=== PATIENT | female | born 1970 | race Caucasian/White ===

== ENCOUNTER 2017-12-18 15:14 | Inpatient (IN) | payer MEDICAID, SELFPAY ==
[2017-12-18 15:33] VITALS: BMI 20.4
[2017-12-18] MEDS: Buprenorphine HCl 2 MG TAB.SUBL SL (17:05)
--- NOTE | 2017-12-18 18:03 | PCM.HP.STD ---
Problem List (1) Opioid withdrawal Status: Acute History of Present Illness Date of Admission: 12/18/17 Chief Complaint: Opioid withdrawal The patient is a 47 year old F who was directly admitted into the medical stabilization program at [facility] for opiate withdrawal. Patient has been using IV heroin and snorting heroin for 3 years, the last time she used any was yesterday. Patient denies any use of other drugs but does occasionally drink alcohol. Patient complains of muscle cramping, anxiety, sweating, and stomach discomfort today. Patient has a complicated medical history, she was recently at [facility] from November 24, 2017 through December 04, 2017 for workup concerning a polyp on her left vocal cord and workup of a problem that she has had with dysphagia and hoarseness ?6 months. Patient is a poor informant, I had to call and talk with a medical biller at [facility]-Dr. Awilda Kruse- who informed me that the patient is suspected of having ALS, the polyp lesion on her left vocal cord was benign, patient has had EMGs which showed abnormalities in her bulbar muscles indicative of ALS, she also had modified barium swallows which showed silent aspiration. She told me she was able to take her medications with liquids, Dr. Kruse told me that she is not to have anything orally. Dr. Kruse also told me the patient admitted to taking her 's Dilaudid-patient did not indicate to me during my interview that she was using any other drugs however. She is due to follow-up with neurology and ENT as an outpatient. Patient has had multiple CTs of the brain and MRIs of the brain which did not show any abnormality. Patient had a PEG tube inserted approximately 3 weeks ago, patient states she has not been able to talk for approximately 3 weeks also. Patient will be admitted to [place] [address] for acute opiate withdrawal, according to medical information I received, patient is to be n.p.o. 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 Denies: Anorexia, Chills, Fever, Night Sweats, Weakness, Weight Change, Fatigue Eyes: Denies: Blurred vision, Cataracts, Conjunctivae Inflammation, Double vision, Drainage HEENT: Reports: Difficulty Swallowing, Dysphasia. Denies: Difficulty Hearing, Ear Pain, Eye Pain, Head Aches, Hearing Changes, Nasal bleeding, Nasal Congestion, Post Nasal Drip Cardiovascular: Denies: Chest Pain, Claudication, Chest Pressure, Chest Tightness, Edema, Heaviness, Light Headedness, Orthopnea, Palpitations, Paroxysmal Noc. Dyspnea Respiratory: Denies: Cough, Hemoptysis, Pleuritic Pain, Shortness of Breath, Shortness of breath at rest, Shortness of breath upon exertion, Sputum production Gastrointestinal: Reports: Abdominal Pain. Denies: Constipation, Diarrhea, Hematemesis, Hematochezia, Nausea, Melena, Vomiting Genitourinary: Denies: Dysuria, Frequency, Hematuria, Hesitancy, Urgency Gynecological: Denies: Breast symptoms Musculoskeletal: Reports: Muscle pain. Denies: Back Pain, Foot Pain, Hand Pain, Joint Pain, Joint stiffness, Joint swelling, Joint Tenderness, Leg Pain Skin: Denies: Dryness, Pruritis, Rash Neurological: Reports: Change in Speech. Denies: Balance problems, Blurred vision, Double vision, Slurred speech, Difficulty swallowing, Focal weakness, Headaches, Incoordination, Numbness, Tingling Psychiatric: Denies: Anxiety, Depression, Homicidal Ideations, Suicidal Ideations Endocrine: Denies: Change in Body Habitus, Heat/ Cold Intolerance, Polydipsia, Polyuria Hematologic/ Lymphatic: Denies: Adenopathy, Anemia, Easy Bruising, Easy Bleeding, Petechiae, Purpura VTE Information - Inpt Only VTE Present on Admission: No VTE Mechan Device Prophylaxis: None VTE Pharm Prophylaxis ordered?: Yes Patient Problems: Active and Suspected Problems Opioid withdrawal (Acute) - Physical Exam General: Alert, Oriented x3, Cooperative, No apparent distress, Well developed, - - She is unable to speak HEENT: Atraumatic, PERRLA, EOMI, Normocephalic Oral: Moist Mucosa Neck: Supple, No JVD, Negative Carotid Bruits, No Nuchal Rigidity, Trachea Midline, Thyroid Normal Size and Texture Lungs: Clear to auscultation, Normal air movement, No rhonchi, No wheeze, No rales Cardiovascular: Regular rate, Regular Rhythm, Normal S1, Normal S2, No murmurs, No Ectopic Activity, PMI Normal, No rub noted, No Gallop Abdomen: Bowel Sounds Present, Soft, Non Tender, Non-Distended, - - PEG tube in place Extremities: No clubbing, No cyanosis, No edema, Capillary Refill Less than 3 Seconds Skin: No rashes Musculoskeletal: No Tenderness to Palpation of Joints or Extremities Neurological: Cranial nerves II-XII grossly intact, Neuro grossly intact, Sensory exam intact to light touch and pain, - - unable to speak Psych/Mental Status: Normal Affect, Appropriate, Alert and oriented to time, place, person, mood and affect Weight: 59.109 kg Body Mass Index (BMI) 20.4 Assessment/Plan Active and Suspected Problems Opioid withdrawal (Acute) #1 acute opioid withdrawal-patient will be admitted into the medical stabilization program at [facility] on second floor medical surgical, orders were entered using the medical stabilization order set, I will place her on IV Ativan as needed for anxiety and tremor, her Subutex is sublingual and I think it is safe for her to take this. #2 dysphagia with silent aspiration-patient will need to be n.p.o., I have written for Jevity 1.5, she uses Isosource 1.5 250 cc 4 times a day down her PEG tube at home, she also gives herself 10 ounces of water 3 times a day. #3 probable ALS-workup will continue as an outpatient, patient is unaware of this probable diagnosis, I do not feel I need to go into this with her during her hospitalization #4 hypertension-patient's hypertensive meds will be delivered down her PEG tube #5 heroin addiction, Dilaudid abuse according to medical information provided to me today Code Visit Inpatient E&M: 59512 Init Hosp L3
--- NOTE | 2017-12-18 18:13 | HP.PCM_ITS ---
Problem List (1) Opioid withdrawal Status: Acute History of Present Illness Date of Admission: 12/18/17 Chief Complaint: Opioid withdrawal The patient is a 47 year old F who was directly admitted into the medical stabilization program at [facility] for opiate withdrawal. Patient has been using IV heroin and snorting heroin for 3 years, the last time she used any was yesterday. Patient denies any use of other drugs but does occasionally drink alcohol. Patient complains of muscle cramping, anxiety, sweating, and stomach discomfort today. Patient has a complicated medical history, she was recently at [facility] from November 24, 2017 through December 04, 2017 for workup concerning a polyp on her left vocal cord and workup of a problem that she has had with dysphagia and hoarseness ?6 months. Patient is a poor informant, I had to call and talk with a medical delivery technician at [facility]-Dr. Awilda Kruse- who informed me that the patient is suspected of having ALS, the polyp lesion on her left vocal cord was benign, patient has had EMGs which showed abnormalities in her bulbar muscles indicative of ALS, she also had modified barium swallows which showed silent aspiration. She told me she was able to take her medications with liquids, Dr. Kruse told me that she is not to have anything orally. Dr. Kruse also told me the patient admitted to taking her 's Dilaudid-patient did not indicate to me during my interview that she was using any other drugs however. She is due to follow-up with neurology and ENT as an outpatient. Patient has had multiple CTs of the brain and MRIs of the brain which did not show any abnormality. Patient had a PEG tube inserted approximately 3 weeks ago, patient states she has not been able to talk for approximately 3 weeks also. Patient will be admitted to [place] [address] for acute opiate withdrawal, according to medical information I received, patient is to be n.p.o. 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 Denies: Anorexia, Chills, Fever, Night Sweats , Weakness, Weight Change, Fatigue Eyes: Denies: Blurred vision, Cataracts, Conjunctivae Inflammation, Double vision, Drainage HEENT: Reports: Difficulty Swallowing, Dysphasia. Denies: Difficulty Hearing, Ear Pain, Eye Pain, Head Aches, Hearing Changes, Nasal bleeding, Nasal Congestion, Post Nasal Drip Cardiovascular: Denies: Chest Pain, Claudication, Chest Pressure, Chest Tightness, Edema, Heaviness, Light Headedness, Orthopnea, Palpitations, Paroxysmal Noc. Dyspnea Respiratory: Denies: Cough, Hemoptysis, Pleuritic Pain, Shortness of Breath, Shortness of breath at rest, Shortness of breath upon exertion, Sputum production Gastrointestinal: Reports: Abdominal Pain. Denies: Constipation, Diarrhea, Hematemesis, Hematochezia, Nausea, Melena, Vomiting Genitourinary: Denies: Dysuria, Frequency, Hematuria, Hesitancy, Urgency Gynecological: Denies: Breast symptoms Musculoskeletal: Reports: Muscle pain. Denies: Back Pain, Foot Pain, Hand Pain , Joint Pain, Joint stiffness, Joint swelling, Joint Tenderness, Leg Pain Skin: Denies: Dryness, Pruritis, Rash Neurological: Reports: Change in Speech. Denies: Balance problems, Blurred vision, Double vision, Slurred speech, Difficulty swallowing, Focal weakness, Headaches, Incoordination, Numbness, Tingling Psychiatric: Denies: Anxiety, Depression, Homicidal Ideations, Suicidal Ideations Endocrine: Denies: Change in Body Habitus, Heat/ Cold Intolerance, Polydipsia, Polyuria Hematologic/ Lymphatic: Denies: Adenopathy, Anemia, Easy Bruising, Easy Bleeding , Petechiae, Purpura VTE Information - Inpt Only VTE Present on Admission: No VTE Mechan Device Prophylaxis: None VTE Pharm Prophylaxis ordered?: Yes Patient Problems: Active and Suspected Problems Opioid withdrawal (Acute) - Physical Exam General: Alert, Oriented x3, Cooperative, No apparent distress, Well developed, - - She is unable to speak HEENT: Atraumatic, PERRLA, EOMI, Normocephalic Oral: Moist Mucosa Neck: Supple, No JVD, Negative Carotid Bruits, No Nuchal Rigidity, Trachea Midline, Thyroid Normal Size and Texture Lungs: Clear to auscultation, Normal air movement, No rhonchi, No wheeze, No rales Cardiovascular: Regular rate, Regular Rhythm, Normal S1, Normal S2, No murmurs, No Ectopic Activity, PMI Normal, No rub noted, No Gallop Abdomen: Bowel Sounds Present, Soft, Non Tender, Non-Distended, - - PEG tube in place Extremities: No clubbing, No cyanosis, No edema, Capillary Refill Less than 3 Seconds Skin: No rashes Musculoskeletal: No Tenderness to Palpation of Joints or Extremities Neurological: Cranial nerves II-XII grossly intact, Neuro grossly intact, Sensory exam intact to light touch and pain, - - unable to speak Psych/Mental Status: Normal Affect, Appropriate, Alert and oriented to time, place, person, mood and affect Weight: 59.109 kg Body Mass Index (BMI) 20.4 Assessment/Plan Active and Suspected Problems Opioid withdrawal (Acute) #1 acute opioid withdrawal-patient will be admitted into the medical stabilization program at [facility] on second floor medical surgical, orders were entered using the medical stabilization order set, I will place her on IV Ativan as needed for anxiety and tremor, her Subutex is sublingual and I think it is safe for her to take this. #2 dysphagia with silent aspiration-patient will need to be n.p.o., I have written for Jevity 1.5, she uses Isosource 1.5 250 cc 4 times a day down her PEG tube at home, she also gives herself 10 ounces of water 3 times a day. #3 probable ALS-workup will continue as an outpatient, patient is unaware of this probable diagnosis, I do not feel I need to go into this with her during her hospitalization #4 hypertension-patient's hypertensive meds will be delivered down her PEG tube #5 heroin addiction, Dilaudid abuse according to medical information provided to me today Code Visit Inpatient E&M: 44327 Init Hosp L3
[2017-12-18] MEDS: Jevity 1.5. 1,000 ML Bottle 250 ML GT (18:30)
[2017-12-18 18:42] VITALS: BP 106/57; PULSE 54; RESP 18; TEMP 36.6
[2017-12-18 21:03] VITALS: BP 102/63; PULSE 62; RESP 16; TEMP 36.7; O2SAT 99
[2017-12-18] MEDS: cloNIDine HCl 0.1 MG Tablet GT (21:08)
[2017-12-18] MEDS: LORazepam 2 MG/ML Syringe 1 MG IV (21:56)
[2017-12-18] MEDS: Ondansetron ODT 4 MG Tablet PO (21:56)
[2017-12-19] VITALS (7 sets, daily range): BP systolic 93–130; BP diastolic 57–100; PULSE 45–78; RESP 16–18; TEMP 36.3–36.9; O2SAT 94–99
[2017-12-19] MEDS: Buprenorphine HCl 2 MG TAB.SUBL SL ×3 (00:58→17:16)
[2017-12-19] MEDS: LORazepam 2 MG/ML Syringe 1 MG IV ×4 (05:22→23:52)
[2017-12-19] MEDS: 0.9% NaCl Peripheral Flush Adult/Peds IV ×4 (05:22→23:52)
[2017-12-19] MEDS: Lisinopril 20 MG Tablet GT (09:59)
[2017-12-19] MEDS: cloNIDine HCl 0.1 MG Tablet GT ×2 (09:59→20:58)
--- NOTE | 2017-12-19 17:15 | PN_ITS ---
Patient Problems: Active and Suspected Problems Opioid withdrawal (Acute) Subjective: Patient was seen and examined today, I have decided to let the patient has some ice chips. Patient's has no increased signs or symptoms of withdrawal. - Physical Exam General: Alert, Oriented x3, Cooperative, No apparent distress, Well developed, Well nourished HEENT: Atraumatic, PERRLA, EOMI, Normocephalic Oral: Moist Mucosa Neck: Supple, No JVD, Negative Carotid Bruits, No Nuchal Rigidity, Trachea Midline, Thyroid Normal Size and Texture Lungs: Clear to auscultation, Normal air movement, No rhonchi, No wheeze, No rales Cardiovascular: Regular rate, Regular Rhythm, Normal S1, Normal S2, No murmurs, No Ectopic Activity, PMI Normal, No rub noted, No Gallop Abdomen: Bowel Sounds Present, Soft, Non Tender, Non-Distended, No hernias noted , - - PEG tube in place Extremities: No clubbing, No cyanosis, No edema, Capillary Refill Less than 3 Seconds Skin: No rashes, No breakdown Musculoskeletal: No Tenderness to Palpation of Joints or Extremities Neurological: Cranial nerves II-XII grossly intact, Neuro grossly intact, Sensory exam intact to light touch and pain, Coordination normal, - - Patient is aphasic Psych/Mental Status: Normal Affect, Appropriate, Alert and oriented to time, place, person, mood and affect Vital Signs Temp Pulse Resp BP Pulse Ox 97.7 F L 62 16 93/57 L 94 12/19/17 13:42 12/19/17 13:42 12/19/17 13:42 12/19/17 13:42 12/19/17 09:14 Oxygen Delivery Method Room Air Weight: 59.1 kg Body Mass Index (BMI) 20.4 Intake and Output for Last 24 Hours 12/17/17 12/18/17 12/19/17 23:59 23:59 23:59 Intake Total 490 / 490 465 / 465 Balance 490 / 490 465 / 465 Assessment/Plan Active and Suspected Problems Opioid withdrawal (Acute) #1 acute opioid withdrawal-continue present treatment #2 dysphagia with silent aspiration-I feel the patient could have ice chips safely, patient was drinking liquids at home prior to coming in here without any problems according to her #3 probable ALS-workup will continue as an outpatient, patient is unaware of this probable diagnosis, I do not feel I need to go into this with her during her hospitalization #4 hypertension-patient's hypertensive meds will be delivered down her PEG tube #5 heroin addiction, Dilaudid abuse according to medical information provided to me Code Visit Inpatient E&M: 37336 Subs Hosp L2
[2017-12-19] MEDS: Acetaminophen 650 MG/20 ML UDC GT (20:58)
[2017-12-20] MEDS: Buprenorphine HCl 2 MG TAB.SUBL SL ×3 (01:24→21:25)
[2017-12-20 05:50] VITALS: BP 119/76; PULSE 73; RESP 16; TEMP 36.4
[2017-12-20] MEDS: LORazepam 2 MG/ML Syringe 1 MG IV ×3 (05:58→18:09)
[2017-12-20] MEDS: 0.9% NaCl Peripheral Flush Adult/Peds IV ×2 (05:59→11:58)
[2017-12-20 09:30] VITALS: BP 103/76; PULSE 94; RESP 16; TEMP 37
[2017-12-20] MEDS: Lisinopril 20 MG Tablet GT (09:32)
[2017-12-20] MEDS: cloNIDine HCl 0.1 MG Tablet GT ×2 (09:32→21:25)
[2017-12-20] MEDS: Acetaminophen 650 MG/20 ML UDC GT (12:00)
[2017-12-20 13:30] VITALS: BP 109/70; PULSE 66; RESP 16; TEMP 36.2
[2017-12-20 18:10] VITALS: BP 110/74; PULSE 69; RESP 14; TEMP 36.3
--- NOTE | 2017-12-20 18:33 | PN_ITS ---
Patient Problems: Active and Suspected Problems Opioid withdrawal (Acute) Subjective: Patient seen and examined today, she asked me whether she could have a prescription for Ativan when she is discharged tomorrow, I told her it was up to the discharging physician tomorrow to make this determination. Patient has noticed complaints of any withdrawal symptoms at this time - Physical Exam General: Alert, Oriented x3, Cooperative HEENT: Atraumatic, PERRLA, EOMI, Normocephalic Oral: Moist Mucosa Neck: Supple, No JVD, No Nuchal Rigidity, Trachea Midline, Thyroid Normal Size and Texture Lungs: Clear to auscultation, Normal air movement, No rhonchi, No wheeze, No rales Cardiovascular: Regular rate, Regular Rhythm, Normal S1, Normal S2, No murmurs, No Ectopic Activity, PMI Normal, No rub noted, No Gallop Abdomen: Bowel Sounds Present, Soft, Non Tender, Non-Distended, - - PEG tube in place Extremities: No clubbing, No cyanosis, No edema, Capillary Refill Less than 3 Seconds Skin: No rashes, No breakdown Musculoskeletal: No Tenderness to Palpation of Joints or Extremities Neurological: Cranial nerves II-XII grossly intact, Neuro grossly intact, Sensory exam intact to light touch and pain, Coordination normal Psych/Mental Status: Normal Affect, Appropriate, Alert and oriented to time, place, person, mood and affect Vital Signs Temp Pulse Resp BP Pulse Ox 97.3 F L 69 14 110/74 99 12/20/17 18:10 12/20/17 18:10 12/20/17 18:10 12/20/17 18:10 12/19/17 20:43 Oxygen Delivery Method Room Air Weight: 59.1 kg Body Mass Index (BMI) 20.4 Intake and Output for Last 24 Hours 12/18/17 12/19/17 12/20/17 23:59 23:59 23:59 Intake Total 490 / 490 1824 / 5 2059 Balance 490 / 490 5 / 1824 Assessment/Plan Active and Suspected Problems Opioid withdrawal (Acute) #1 acute opioid withdrawal-continue present treatment #2 dysphagia with silent aspiration-to need to give meds down her PEG tube, ice chips as needed p.o. #3 probable ALS-workup will continue as an outpatient, patient is unaware of this probable diagnosis, I do not feel I need to go into this with her during her hospitalization #4 hypertension-patient's hypertensive meds will be delivered down her PEG tube #5 heroin addiction, Dilaudid abuse according to medical information provided to me Summary patient was admitted into the medical stabilization program for opiate withdrawal and has a medical history recently of undergoing a workup for dysphagia and aphasia, this workup was done at [facility] the end of October and the first part of November of this year. It is postulated that the patient may have ALS, patient does not know this at this time, she is going to be seeing a neurologist sometime in December in [place] for follow-up. Patient is currently only getting ice chips p.o., she needs to take her medications through her PEG tube and all nutrition through the PEG tube. Code Visit Inpatient E&M: 22065 Subs Hosp L2
[2017-12-20 21:17] VITALS: BP 126/88; PULSE 80; RESP 16; TEMP 36.7
[2017-12-21 00:43] VITALS: BP 115/81; PULSE 68; RESP 14; TEMP 37.1
[2017-12-21] MEDS: LORazepam 2 MG/ML Syringe 1 MG IV ×2 (00:44→07:30)
[2017-12-21] MEDS: 0.9% NaCl Peripheral Flush Adult/Peds IV ×2 (00:44→07:30)
--- NOTE | 2017-12-21 07:45 | PCM.DC ---
- Discharge Diagnoses Current Active Problems: Current Active and Chronic Problems Opioid withdrawal (Acute) Acute Opiate Withdrawal Tobacco use HTN Possible ALS, Unconfirmed, Needs outpatient ongoing evaluation Chronic Dysphagia w/ Chronic Aspiration, PEG tube in place You will use the following diet at home:: Other - Continue usage of PEG tube as previously advised prior to current admission. Discharge Activity: Return to Normal Activity May resume sexual activity in: - - Advise HIV, Hepatitis panel with primary care physician prior to sexual activity resumption. Weight Bearing Status: Weight bearing as tolerated Call your doctor if you observe: Fever of 101 or Higher, Inability to urinate, Inability to have a bowel movement, Shortness of breath, Dizziness, Fainting spells, Chest pain, Uncontrolled pain Instructions: ED Withdrawal Narcotic, Why Do You Smoke?, Planning to Quit Smoking, Getting Support for Quitting Smoking, Coping with Smoking Withdrawal Allergies/Adverse Reactions: Allergies amoxicillin Allergy (Verified 12/18/17 15:40) Hives Penicillins [PCN] Allergy (Verified 12/18/17 15:40) Hives Medications to take at Discharge Clonidine HCl 0.1 mg PO BID 12/18/17 Lisinopril 10 mg PO BID 12/18/17 Melatonin 10 mg PO QHS PRN #30 cap 12/21/17 Nicotine [Nicoderm Cq] 21 mg TRANSDERM. DAILY #14 patch 12/21/17 The following prescriptions were given: Melatonin 10 mg PO QHS PRN #30 cap PRN Reason: Insomnia Nicotine [Nicoderm Cq] 21 mg TRANSDERM. DAILY #14 patch Primary Care Physician: Care Physician,No Primary [Primary Care Provider] - Please follow up with your Primary Care Physician in: Please follow-up with PCP within 3-5 days to review admission. Proposed Discharge Date: 12/21/17
--- NOTE | 2017-12-21 07:50 | PCM.DC.SUM ---
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, dysphagia - Secondary Discharge Diagnosis Opiate Abuse Tobacco use HTN Possible ALS, Unconfirmed, Needs outpatient ongoing evaluation Chronic Dysphagia w/ Chronic Aspiration, PEG tube in place 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 Patient was admitted to [facility], routine labs including CBC, CMP, urine for drug screen, urinalysis, serum lipase, patient was initiated and continue on [facility] service protocol with tapering course of Subutex, as needed Seroquel, Librium, Sinemet, Catapres, Bentyl, Vistaril, IV fluids, IV antiemetics, Tylenol as needed for pain. Once patient clinically improved, patient continued with [facility] assistance for transition to next level of rehabilitation care. Given IVDA Hx, encouraged PCP evaluation upon discharge with HIV, hepatitis panel to be obtained. Noted to patient that if positive hepatitis status, would beed to be clean, sober x 6 months, documented attendance NA or AA meetings, counseling and ongoing negative drug screens to initiate therapy with either ID or GI. Encouraged cessation, inpatient consultation per RT, NR rx given upon discharge. Patient during admission [facility] [place] [facility]. Upon discharge this was discussed at length via white board writing (non-verbal given severity of hoarseness) and relayed that this would be a poor choice for her given her abuse history. Advised discussion with PCP for SSRI options for anxiety. Patient discharged to home in stable, improved condition. Encouraged continued outpatient follow-up for her dysphagia, ? ALS. DAY OF DISCHARGE PROGRESS NOTE: Subjective: Patient without acute event overnight per self and nursing report. Patient denies fever, chills, nausea, emesis, abdominal pain, chest pain or dyspnea. Patient notes resolution of acute opiate withdrawal sxs. She requested ativan upon discharge but this was deferred and discussed need for PCP establishment and follow-up for consideration SSRI at length. Patient agreeable to discharge to home given planned appointment in [place] early afternoon. Patient will be discharged with encouraged follow-up with primary care physician within 3-5 days in addition to ongoing [facility] plan. Objective: T 98.7, HR 68, BP 115/81, RR 14, 99% on RA. Physical Examination: General: awake, alert, oriented x 3 via writing board interactions, chronically hoarse, cooperative, seated upright in the bed, NAD. Skin: normal color, turgor, no icterus, cyanosis. HEENT: AT/NC, EOMI, PERRLA, improved MMM, chronically hoarse. Lungs: CTA bilaterally, moderate effort, mild decrease BL bases, no rales, ronchi or wheezing; Heart: Regular rate and rhythm; no gallop, rub audible. Abdomen: soft, PEG, NTTP, ND, normal BS. Extremities: no cyanosis, clubbing, or edema. Neurological: patient awake, alert, oriented x 3; cognitive function appears intact upon questioning,; pupils equally reactive to light and accomodation; cranial nerves II-XII grossly normal, moving all 4 extremities, strength appropriate. Psychiatric: affect appears mildly flat, no acute evidence of depressive or anxiety feelings. Assessment and Plan: Please see hospital summary above. Discharge Activity: Return to Normal Activity May resume sexual activity in: - - Advise HIV, Hepatitis panel with primary care physician prior to sexual activity resumption. Weight Bearing Status: Weight bearing as tolerated Call your doctor if you observe: Fever of 101 or Higher, Inability to urinate, Inability to have a bowel movement, Shortness of breath, Dizziness, Fainting spells, Chest pain, Uncontrolled pain Home Medications: Medications to take at Discharge Clonidine HCl 0.1 mg PO BID 12/18/17 Lisinopril 10 mg PO BID 12/18/17 Melatonin 10 mg PO QHS PRN #30 cap 12/21/17 Nicotine [Nicoderm Cq] 21 mg TRANSDERM. DAILY #14 patch 12/21/17 Following Prescrptions Were Given to Patient: Melatonin 10 mg PO QHS PRN #30 cap PRN Reason: Insomnia Nicotine [Nicoderm Cq] 21 mg TRANSDERM. DAILY #14 patch Primary Care Physician: Care Physician,No Primary [Primary Care Provider] - Please follow up with your Primary Care Physician in: Please follow-up with PCP within 3-5 days to review admission. Patient Instructions: Why Do You Smoke?, Planning to Quit Smoking, Getting Support for Quitting Smoking, Coping with Smoking Withdrawal, ED Withdrawal Narcotic Disposition: Home Minutes spent on discharge:: 35 Patient Condition:: Fair Meaningful Use Info Meaningful Use Diagnoses (Choose all that apply): None applicable Code Visit Inpatient E&M: 54829 Disch Hosp
[2017-12-21 09:16] VITALS: BP 121/65; PULSE 92; RESP 18; TEMP 37; O2SAT 92
[2017-12-21 09:17] VITALS: BP 121/65; PULSE 92; RESP 18; TEMP 37
[2017-12-21] MEDS: cloNIDine HCl 0.1 MG Tablet GT (09:20)
[2017-12-21] MEDS: Buprenorphine HCl 2 MG TAB.SUBL SL (09:20)
[2017-12-21] MEDS: Lisinopril 20 MG Tablet GT (09:21)
== END 2017-12-21 12:15 | disposition home or self-care (01) | DRG 434 ==
PROVIDERS: Admitting Provider Internal Medicine; Visit Provider Family Medicine
DX: F11.23 Opioid dependence with withdrawal (principal); G12.21 Amyotrophic lateral sclerosis; R13.10 Dysphagia, unspecified; Z93.1 Gastrostomy status; I10 Essential (primary) hypertension; F17.210 Nicotine dependence, cigarettes, uncomplicated; J38.1 Polyp of vocal cord and larynx
CPT/HCPCS: 97802; A4216